=== PATIENT | male | born 1945 | race Caucasian/White ===

== ENCOUNTER 2017-07-22 06:10 | Day surgery (SDC) | payer MEDICARE, BC ==
[2017-07-17 11:51] VITALS: BMI 33.6
[~2017-07-22 06:10] MED LIST: ALPRAZolam 0.25 MG TAB PO PRN; ALPRAZolam 0.5 MG TAB PO PRN; ASPIRIN 325 MG TAB PO STA; ATORVASTATIN 80 MG TAB PO STA; NITROGLYCERIN SL TABS 0.4 MG TAB SUBLINGUAL PRN; SODIUM CHLORIDE 0.9% 1,000 ML in EMPTY BAG 1 BAG IV ONE
[2017-07-22 07:06] VITALS: RESP 16; TEMP 97.6
[2017-07-22] MEDS ORDERED: SODIUM CHLORIDE 0.9% 1,000 ML IV ONE (07:11)
[2017-07-22] MEDS ORDERED: MIDAZOLAM 2 MG/2 ML VIAL IV ONE (07:43)
[2017-07-22] MEDS ORDERED: diphenhydrAMINE 50 MG/ML 1 ML VIAL IVP ONE (07:43)
[2017-07-22] MEDS ORDERED: LIDOCAINE 2% INJ 20 MG/ML SQ ONE (07:47)
[2017-07-22] MEDS: VERAPAMIL SYRINGE (5 MG/10 ML) INTRAARTER ONE ×2 (07:51→08:06)
[2017-07-22] MEDS ORDERED: HEPARIN SODIUM 1,000 UN/ML (10ML VL) IV ONE (07:52)
[2017-07-22] MEDS ORDERED: IOHEXOL 350 MG/ML (PER ML) 100ML BTL INJ ONE (08:06)
[2017-07-22] MEDS ORDERED: SODIUM CHLORIDE 0.9% 1,000 ML IV SCH (08:19)
--- NOTE | 2017-07-22 10:41 | LTR ---
DATE OF SERVICE: 07/22/2017 RE: Patric Gatica. Dear Dr. Gillespie; Thank you for the opportunity to participate in the care of Mr. Gatica. I am pleased to report to you that all his 3 vessels that were stented in 2008 are widely patent. Continued medical therapy with risk factor modification advised and he will be discharged later on today if he remains stable. Thank you for your referral and please call for questions. With kindest regards, MD RICHELLE Yoder / ANILN: [phone] /
--- NOTE | 2017-07-22 10:41 | CC ---
CARDIAC CATHETERIZATION REPORT DATE OF SERVICE: 07/22/2017. PROCEDURE: Left heart catheterization and coronary angiography. PERFORMED BY: Dr. Salty Miranda. CLINICAL INFORMATION: Mr. 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 He also has hypertension. He underwent a triple-vessel PCI in 2008. In February of 2009, I performed stenting of a subtotally occluded LAD in the proximal portion with multiple drug-eluting stents. In June, I have performed stenting of the RCA and circumflex. He has been having symptoms strongly suggestive of angina with mild activity. Shortness of breath was the main symptom which seemed to be anginal equivalence. In view of disabling symptoms in spite of aggressive medical therapy, I advised him to have coronary angiography. Patient could not tolerate nitrates and his heart rate was in the 60s with persistent chest discomfort and more importantly shortness of breath on mild activity. The risks, benefits, and options were explained and the patient and family wished to proceed with the procedure. PROCEDURE NOTE: Under local anesthesia and strict aseptic precautions, a 6-Israeli introducer was placed in the right radial artery. Using an Ultimate 1 catheter, I performed selective coronary angiography of the left coronary artery and also checked LV pressures. LV gram was not performed. The right coronary artery was cannulated with a JR3.5 catheter. Patient tolerated procedure well without complication. The sheath was taken out and a TR band applied as per protocol. Saturation of the fingers of the right hand was 97%. Results were discussed with the patient and family. Moderate conscious sedation time was provided for a total duration of 26 minutes with Versed and Benadryl. CARDIAC CATHETERIZATION FINDINGS: The left end-diastolic pressure was 9 mmHg and there was no gradient across the aortic valve. CORONARY ANGIOGRAPHY FINDINGS: RIGHT CORONARY ARTERY: Dominant vessel, has widely patent vessel at the site of previous stenting. Gives off a large acute marginal branch and then there is a 35% narrowing. Then the caliber improves and distally there is a high bifurcation into PDA and PLV, both of which supply a sizable amount of myocardium. The site of stenting is widely patent and RCA is a dominant, disease-free with brisk flow. LEFT MAIN CORONARY ARTERY: Short, patent, disease-free vessel that bifurcates into LAD and circumflex. LEFT ANTERIOR DESCENDING CORONARY ARTERY: Good caliber vessel, which is widely patent. The 2 stents in the proximal LAD are widely patent. The LAD has no significant disease. It supplies a sizable amount of myocardium, runs all the way to the apex. It gives off septal and diagonal branches which are free of significant disease. LEFT POSTERIOR CIRCUMFLEX CORONARY ARTERY: Nondominant vessel that was stented in 2008 distally. The stented segment is widely patent. There are minor irregularities, gives off a good-sized obtuse marginal that runs laterally, has minor irregularities and no significant disease. LEFT VENTRICULOGRAM: This was not performed. FINAL IMPRESSION: This patient has a widely patent right coronary artery, circumflex and left anterior descending artery at the sites of previous stenting without significant progression of disease. Filling pressures are normal. RECOMMENDATION: Findings were discussed with the patient and family. I will look for other causes of shortness of breath, including pulmonary etiology. He has no significant progression of CAD and will continue aggressive medical therapy with risk factor modification. Patient will be discharged later on today if he remains stable. MMODL / IJN: [id number] /
[2017-07-22] MEDS ORDERED: METOPROLOL TARTRATE 25 MG TAB PO SCH (11:00)
[2017-07-22 11:47] VITALS: BP 149/79; PULSE 63
== END 2017-07-22 14:50 | disposition home or self-care (01) ==
LOC: CATHCVL 06:10
PROVIDERS: ATTEND Internal Medicine Interventional Cardiology
DX: I25.110 Atherosclerotic heart disease of native coronary artery with unstable angina pectoris (principal); I10 Essential (primary) hypertension; Z87.891 Personal history of nicotine dependence; E78.00 Pure hypercholesterolemia, unspecified; K21.9 Gastro-esophageal reflux disease without esophagitis; D69.3 Immune thrombocytopenic purpura; Z95.5 Presence of coronary angioplasty implant and graft; Z79.82 Long term (current) use of aspirin; Z79.899 Other long term (current) drug therapy
CPT/HCPCS: 93458; C1769; C1894; J2001; J2250; J1200; Q9967; J1644

== ENCOUNTER → 2019-08-30 | Outpatient (CLI) | payer MEDICARE, BC ==
--- NOTE | 2019-08-30 13:41 | US ---
EXAMINATION TYPE: US venous doppler duplex LE RT DATE OF EXAM: 08/30/2019 1:16 PM COMPARISON: NONE CLINICAL HISTORY: I82.401 ACUTE EMBOLISM AND THROMBOSIS OF DEEP VEINS. Pain right popliteal fossa x 2 days. Patient stated has been mostly weight bearing right leg after fell on left leg 3 weeks ago. SIDE PERFORMED: Right TECHNIQUE: The lower extremity deep venous system is examined utilizing real time linear array sonog brigette with graded compression, doppler sonography and color-flow sonography. VESSELS IMAGED: Common Femoral Vein Deep Femoral Vein Greater Saphenous Vein * Femoral Vein Popliteal Vein Small Saphenous Vein * Proximal Calf Veins (* superficial vessels) Grayscale, color doppler, spectral doppler imaging performed of the deep veins of the right lower ext remity. Right Leg: Partially occluding DVT in upper right gastrocnemius veins. Technologist findings called to SHADE Sheehan, at Dr Gillespie's Office at exam's end. ADA IMPRESSION: Partially occluding deep venous thrombosis in the right lower extremity within the gastr ocnemius veins. Technologist findings called to SHADE Sheehan, at Dr Gillespie's Office at exam's end by the commercial green building designer Christine Hernandez
== END | disposition home or self-care (01) ==
LOC: RADUSWWP 12:39
PROVIDERS: ATTEND Family Medicine
DX: I82.461 Acute embolism and thrombosis of right calf muscular vein (principal)

== ENCOUNTER → 2020-03-06 | Outpatient (CLI) | payer MEDICARE, BC ==
--- NOTE | 2020-03-07 12:25 | P.ARTDOP ---
Arterial Doppler LOWER EXTREMITY ARTERIAL DOPPLER: DATE OF SERVICE: 03/06/2020 Reason for study: Pain right thigh. Doppler waveforms: Multiphasic bilaterally throughout. Pulse volume recording: Normal digital waveforms. Pressure gradients: None. Ankle-brachial indices: Greater than 1 bilaterally. Toe brachial indices: 0.83 on the right, 0.77 on the left Impression: Normal study.
== END | disposition home or self-care (01) ==
LOC: RADUSWWP 10:43
PROVIDERS: ATTEND Family Medicine
DX: M79.651 Pain in right thigh (principal)
CPT/HCPCS: 93922